=== PATIENT | male | born 1960 | race Caucasian/White ===

== ENCOUNTER → 2024-08-17 11:37 | Outpatient (REF) | payer OTHER, SELFPAY | LOC: HWRAD 11:37 | PROVIDERS: ATTENDING PHYSICIAN Nurse Practitioner Family | DX: M79.601 Pain in right arm (principal) | CPT/HCPCS: 73080 ==

== ENCOUNTER → 2025-02-08 09:36 | Outpatient (REF) | payer OTHER, SELFPAY | LOC: RAD 09:36 | PROVIDERS: ATTENDING PHYSICIAN Nurse Practitioner Family | DX: M54.32 Sciatica, left side (principal) | CPT/HCPCS: 72110 ==